=== PATIENT | female | born 1980 | race American Indian/Alaskan Native ===

== ENCOUNTER 2016-06-22 14:13 | Emergency (ER) | payer SELFPAY ==
[2016-06-22 14:57] VITALS: BP 121/80
--- NOTE | 2016-06-22 17:19 | Emergency Department Report ---
HPI - General Chief Complaint: Dental/Oral Time Seen by Provider: 06/22/16 16:59 - HPI HPI: 36 y/o female complain of dental pain x 2 years .pt state pain is constantly non radiating and aching .pt state unable to see a dentist at present .pt voice complain of painful urination without any discharge .pt denies any abdominal pain .pt denies any n/v at present . ED Past Medical Hx - Past Medical History Previous Medical History?: No - Surgical History Past Surgical History?: Yes Additional Surgical History: tubal ligation - Social History Smoking Status: Never Smoker Substance Use Type: None - Medications Home Medications: Home Medications Medication Instructions Recorded Confirmed Last Taken Type Cephalexin [Keflex] 500 mg PO BID #14 capsule 06/22/16 Unknown Rx Sulfamethoxazole/Trimethoprim 1 each PO BID #14 tablet 06/22/16 Unknown Rx [Bactrim DS TAB] ED Review of Systems ROS: Stated complaint: UTI/TOOTHACHE/EARACHE Other details as noted in HPI Constitutional: denies: chills, fever Eyes: denies: eye pain, eye discharge, vision change ENT: denies: ear pain, throat pain Respiratory: denies: cough, shortness of breath, wheezing Cardiovascular: denies: chest pain, palpitations Endocrine: no symptoms reported Gastrointestinal: denies: abdominal pain, nausea, diarrhea Genitourinary: dysuria, frequency. denies: urgency, discharge Musculoskeletal: denies: back pain, joint swelling, arthralgia Skin: denies: rash, lesions Neurological: denies: headache, weakness, paresthesias Psychiatric: denies: anxiety, depression Hematological/Lymphatic: denies: easy bleeding, easy bruising Physical Exam - Physical Exam Vital Signs: Vital Signs 06/22/16 14:53 Temperature 98.9 F Pulse Rate 63 Respiratory 18 Rate Blood Pressure 121/80 O2 Sat by Pulse 100 Oximetry Physical Exam: GENERAL: The patient is well-developed and well-nourished. Patient is in NAD. HENT: Normocephalic. Atraumatic. Patient has moist mucous membranes. Throat: No erythema, swelling or exudates. Ears:Tympanic membranes pearly mercedes ,intact , and free of exudate and erythema .tooth impaction noted tooth number 32 EYES: Extraocular motions are intact, PERRL NECK: Supple. No meningitic signs are noted. There is no adenopathy noted. CHEST/LUNGS: Clear to auscultation bilaterally. No wheezing, rales or rhonchi noted. There is no respiratory distress noted. HEART/CARDIOVASCULAR: Regular rate and rhythm. Normal S1 S2. No murmurs, rubs , clicks, or gallops. ABDOMEN: Abdomen is soft, nontender.. Bowel sounds normoactive. There is no abdominal distention. Negative rebound tenderness. : Deferred. SKIN: There is no rash. There is no edema. There is no diaphoresis.Normal skin turgor NEURO: The patient is A&Ox3. The patient has no focal neurologic deficits. MUSCULOSKELETAL: There is no tenderness or deformity. There is no limitation range of motion. posture erect.Spine aligned,no deformities. PSYCH: Pt has appropriate mood and affect. ED Course Vital Signs 06/22/16 14:53 Temperature 98.9 F Pulse Rate 63 Respiratory 18 Rate Blood Pressure 121/80 O2 Sat by Pulse 100 Oximetry ED Medical Decision Making - Lab Data Laboratory Results - last 24 hr 06/22/16 Unknown Urine Color Yellow Urine Turbidity Slightly-cloudy Urine pH 6.0 Ur Specific [place] 1.015 Urine Protein <15 mg/dl Urine Glucose (UA) Neg Urine Ketones Neg Urine Blood Mod Urine Nitrite Pos Ur Reducing Substances Not Reportable Urine Bilirubin Neg Urine Ictotest Not Reportable Urine Urobilinogen < 2.0 Ur Leukocyte Esterase Mod Urine WBC (Auto) 3.0 Urine RBC (Auto) 2.0 U Epithel Cells (Auto) 2.0 Urine Bacteria (Auto) 1+ Urine Mucus Few Critical care attestation.: If time is entered above; I have spent that time in minutes in the direct care of this critically ill patient, excluding procedure time. ED Disposition Clinical Impression: Dental impaction Urinary tract infection Qualifiers: Urinary tract infection type: site unspecified Hematuria presence: with hematuria Qualified Code(s): N39.0 - Urinary tract infection, site not specified ; R31.9 - Hematuria, unspecified Disposition: DISCHARGED TO HOME OR SELFCARE Is pt being admited?: No Does the pt Need Aspirin: No Condition: Stable Instructions: Dental Abscess (ED), Urinary Tract Infection in Women (ED) Prescriptions: Cephalexin [Keflex] 500 mg PO BID #14 capsule Sulfamethoxazole/Trimethoprim [Bactrim DS TAB] 1 each PO BID #14 tablet Referrals: PRIMARY CARE, [Primary Care Provider] - 3-5 Days Forms: Work/School Release Form(ED) Time of Disposition: 18:26
[2016-06-22 18:06] LABS: Bacteria,Urine 1+ /HPF (Negative); Mucus,Urine FEW /HPF
[2016-06-22 18:07] LABS: Bilirubin,Urine NEG (Negative); Blood,Urine MOD (Negative); Ketones,Urine NEG (Negative); Leukocyte Esterase,Urine MOD (Negative); Nitrite,Urine POS (Negative); Protein,Urine <15 mg/dL mg/dL (Negative); Urobilinogen,Urine < 2.0 mg/dL (<2.0)
== END 2016-06-22 18:33 | disposition home or self-care (01) ==
LOC: ED 14:13
DX: N39.0 Urinary tract infection, site not specified (principal); R31.9 Hematuria, unspecified; K01.1 Impacted teeth; Z98.51 Tubal ligation status
CPT/HCPCS: 81001; 99282

== ENCOUNTER 2016-11-08 21:43 | Emergency (ER) | payer SELFPAY ==
--- NOTE | 2016-11-08 23:28 | Emergency Department Report ---
ED Female HPI - General Chief complaint: Urogenital-Female Stated complaint: BLOOD IN URINE/PAINFUL Time Seen by Provider: 11/08/16 23:11 Source: patient, EMS Mode of arrival: Ambulatory Limitations: No Limitations - History of Present Illness Initial comments: This is a 36-year-old female that reports having pain and burning and trace blood in her urine. States her urine has been cloudy. She states that this has been happening off and on for 3 weeks. States she has been going frequently and doesn't feel like she is completely emptying her bladder when she urinates. She has had this previously with similar symptoms. And she said she knows she has a urinary tract infection. Denies any nausea or vomiting. Denies any fever or chills. Denies any abdominal or back pain. Patient has a history of tubal ligation in 2012 and her last menstrual period was 10/10/2016 denies any vaginal discharge or any concern for STDs. Burning is only when she urinates. No [id number] medication taken. She denies any medical problems. MD Complaint: dysuria Onset/Timin -: week(s) Severity scale (0 -10): 0 Improves with: none Worsens with: urination (burning with urination) Are you Now?: No Associated Symptoms: dysuria, hematuria. denies: vaginal discharge, vaginal bleeding, abdominal pain, nausea/vomiting, fever/chills, headaches, loss of appetite, rash, seizure, shortness of breath, syncope, weakness - Related Data Sexually active: No Previous Rx's Medication Instructions Recorded Last Taken Type Cephalexin [Keflex] 500 mg PO BID #14 capsule 06/22/16 Unknown Rx Sulfamethoxazole/Trimethoprim 1 each PO BID #14 tablet 06/22/16 Unknown Rx [Bactrim DS TAB] Nitrofurantoin [place]/M-Cryst 100 mg PO Q12HR #14 capsule 11/09/16 Unknown Rx [Macrobid CAP] Phenazopyridine [Pyridium] 100 mg PO TID PRN #9 tab 11/09/16 Unknown Rx Allergies Allergy/AdvReac Type Severity Reaction Status Date / Time No Known Allergies Allergy Verified 05/21/16 13:18 ED Review of Systems ROS: Stated complaint: BLOOD IN URINE/PAINFUL Other details as noted in HPI Comment: All other systems reviewed and negative Constitutional: no symptoms reported Eyes: denies: eye pain, vision change Respiratory: no symptoms reported Cardiovascular: denies: chest pain, palpitations, edema, syncope Gastrointestinal: denies: abdominal pain, nausea, vomiting, diarrhea, constipation, hematemesis, melena, hematochezia Genitourinary: dysuria, hematuria. denies: urgency, frequency, discharge Musculoskeletal: denies: back pain, joint swelling, arthralgia, myalgia Skin: denies: rash Neurological: denies: headache, weakness, numbness, paresthesias, confusion, abnormal gait, vertigo ED Past Medical Hx - Past Medical History Previous Medical History?: No - Surgical History Past Surgical History?: Yes Additional Surgical History: tubal ligation - Family History Family history: hypertension - Social History Smoking Status: Never Smoker Substance Use Type: None Other Social History: Patient is single - Medications Home Medications: Home Medications Medication Instructions Recorded Confirmed Last Taken Type Cephalexin [Keflex] 500 mg PO BID #14 capsule 06/22/16 Unknown Rx Sulfamethoxazole/Trimethoprim 1 each PO BID #14 tablet 06/22/16 Unknown Rx [Bactrim DS TAB] Nitrofurantoin [place]/M-Cryst 100 mg PO Q12HR #14 capsule 11/09/16 Unknown Rx [Macrobid CAP] Phenazopyridine [Pyridium] 100 mg PO TID PRN #9 tab 11/09/16 Unknown Rx ED Physical Exam - General Limitations: No Limitations General appearance: alert, in no apparent distress - Head Head exam: Present: atraumatic, normocephalic, normal inspection - Eye Eye exam: Present: normal appearance, PERRL, EOMI Pupils: Present: normal accommodation - ENT ENT exam: Present: normal exam, normal orophraynx, mucous membranes moist, TM's normal bilaterally, normal external ear exam - Neck Neck exam: Present: normal inspection, full ROM. Absent: tenderness, meningismus, lymphadenopathy - Respiratory Respiratory exam: Present: normal lung sounds bilaterally. Absent: respiratory distress, chest wall tenderness, accessory muscle use, decreased breath sounds - Cardiovascular Cardiovascular Exam: Present: regular rate, normal rhythm, normal heart sounds - GI/Abdominal GI/Abdominal exam: Present: soft, normal bowel sounds. Absent: distended, tenderness, guarding, rebound, rigid - Extremities Exam Extremities exam: Present: normal inspection, full ROM, normal capillary refill. Absent: tenderness, pedal edema, joint swelling, calf tenderness - Back Exam Back exam: Present: normal inspection, full ROM. Absent: tenderness, CVA tenderness (R), CVA tenderness (L), muscle spasm, paraspinal tenderness, vertebral tenderness, rash noted - Neurological Exam Neurological exam: Present: alert, oriented X3, normal gait, reflexes normal. Absent: motor sensory deficit - Psychiatric Psychiatric exam: Present: normal affect, normal mood - Skin Skin exam: Present: warm, dry, intact, normal color. Absent: rash ED Course Vital Signs 11/08/16 22:08 Temperature 98.7 F Pulse Rate 66 Respiratory 18 Rate Blood Pressure 131/89 O2 Sat by Pulse 100 Oximetry - Reevaluation(s) Reevaluation #1: 11/09/16 00:06 Patient received Rocephin 1 g IM in emergency room to cover urinary tract infection. Urine culture sent ED Medical Decision Making - Lab Data Lab Results 11/08/16 Range/Units 22:30 Urine Color Yellow (Yellow) Urine Turbidity Slightly-cloudy (Clear) Urine pH 6.0 (5.0-7.0) Ur Specific [place] 1.015 (1.003-1.030) Urine Protein <15 mg/dl (Negative) mg/dL Urine Glucose (UA) Neg (Negative) mg/dL Urine Ketones Neg (Negative) mg/dL Urine Blood Mod (Negative) Urine Nitrite Pos (Negative) Urine Bilirubin Neg (Negative) Urine Urobilinogen 2.0 (<2.0) mg/dL Ur Leukocyte Esterase Mod (Negative) Urine WBC (Auto) 17.0 H (0.0-6.0) /HPF Urine RBC (Auto) 3.0 (0.0-6.0) /HPF U Epithel Cells (Auto) 11.0 (0-13.0) /HPF Urine Bacteria (Auto) 1+ (Negative) /HPF Urine Mucus 3+ /HPF Urine HCG, Qual Negative (Negative) Urine culture sent and pending - Medical Decision Making ED course: Patient here reports feeling off having urinary tract infection off and on 3 weeks with urinary burning and traces of blood in her urine. Urinalysis came back positive for bladder infection to include positive white count, positive bacteria, positive blood and positive nitrite. With positive leukocyte Estrace. Urine culture sent and pending. Mustapha Pollard was here previously on 05/21/2016 and treated for dizziness and UTI and also here 06/2016 and was treated for UTI toothache . There were no cultures sent. Patient does not have any CVA tenderness, nausea or vomiting or fever. To tolerate oral liquid. Diagnostic/labs: Urinalysis with positive white count, positive leukocyte esterase, positive bacteria, positive LAD and positive nitrite and culture is pending. No need for any diagnostic studies. Assessment/plan: 1. Acute cystitis with hematuria-patient given Rocephin 1 g IM in emergency room, prescription for Macrobid 2: Dysuria-prescription for Pyridium when necessary Patient is encouraged to increase her fluid intake and not to hold her urine when she gets the urge to go. I discussed with her that this is her third urinary tract infection over 6 months and she needs to follow-up with urology and her primary care physician. Patient is stable and discharged home with prescription for Macrobid and Pyridium and voiced understanding of discharge instructions. Critical care attestation.: If time is entered above; I have spent that time in minutes in the direct care of this critically ill patient, excluding procedure time. ED Disposition Clinical Impression: Acute cystitis with hematuria, Dysuria Disposition: DC-01 TO HOME OR SELFCARE Is pt being admited?: No Does the pt Need Aspirin: No Condition: Stable Instructions: Dysuria (ED), Urinary Tract Infection in Women (ED) Additional Instructions: Please follow up with PCP in 2-3 days. Increase her fluid intake to 2-3 L of fluid per day. You may need to follow up with urologist for chronic urinary tract infection Take antibiotic as prescribed Prescriptions: Nitrofurantoin [place]/M-Cryst [Macrobid CAP] 100 mg PO Q12HR #14 capsule Phenazopyridine [Pyridium] 100 mg PO TID PRN #9 tab PRN Reason: Urine burning Referrals: PRIMARY CARE, [Primary Care Provider] - 2-3 Days [facility] [place] [Outside] - 2-3 Days Forms: Work/School Release Form(ED)
[2016-11-08 23:33] LABS: Bacteria,Urine 1+ /HPF (Negative); Bilirubin,Urine NEG (Negative); Blood,Urine MOD (Negative); Ketones,Urine NEG (Negative); Leukocyte Esterase,Urine MOD (Negative); Mucus,Urine 3+ /HPF; Nitrite,Urine POS (Negative); Protein,Urine <15 mg/dL mg/dL (Negative)
[2016-11-08] MEDS ORDERED: XYLOCAINE 1% MPF 5 mL INFILTRATI ONE (23:54)
[2016-11-08] MEDS ORDERED: ROCEPHIN IM STA (23:54)
[2016-11-09 00:45] VITALS: BP 115/82
== END 2016-11-09 00:45 | disposition home or self-care (01) ==
LOC: ED 21:43
DX: N30.01 Acute cystitis with hematuria (principal)
CPT/HCPCS: 81001; 81025; 87086; 96372; 99283; J0696